=== PATIENT | male | born 1990 | race American Indian/Alaskan Native ===

== ENCOUNTER 2016-12-29 09:15 | Emergency (ER) | payer MEDICAID ==
[2016-12-29 09:26] VITALS: BP 121/78; RESP 18; TEMP 98.1
--- NOTE | 2016-12-29 09:32 | C.PDOC ---
History Of Present Illness 26M c/o left hand pain after punching a wall last night around 1am. he noted the pain when he woke up today. has not taken anything at home for pain. right- handed. Time Seen by Provider: 12/29/16 09:18 Chief Complaint (Nursing): Upper Extremity Problem/Injury Past Medical History Vital Signs: Last Vital Signs Temp 98.1 F 12/29/16 09:21 Pulse 75 12/29/16 09:59 Resp 18 12/29/16 09:59 BP 121/78 12/29/16 09:21 Pulse Ox 98 12/29/16 09:59 Family History: States: Other Other Family History: nc - Social History Hx Alcohol Use: Yes Hx Substance Use: No Review Of Systems Constitutional: Negative for: Fever Cardiovascular: Negative for: Chest Pain Respiratory: Negative for: Shortness of Breath Gastrointestinal: Negative for: Vomiting Neurological: Negative for: Weakness, Numbness Physical Exam - Physical Exam Appears: Well, Non-toxic, No Acute Distress Skin: Warm, Dry Cardiovascular: Rhythm Regular Respiratory: No Accessory Muscle Use Extremity: Other (ttp over 3-5th mc left hand. no ttp wrist but dim rom due to hand pain. sensation intact. pt not cooperative w full strength testing. ) Pulses: Right Radial: Normal Neurological/Psych: Oriented x3, Other (no focal deficits) ED Course And Treatment O2 Sat by Pulse Oximetry: 100 Medical Decision Making Medical Decision Making: xr left hand and wrist- no acute fracture ulnar gutter splint applied ortho follow up Disposition - Disposition Referrals: [facility] [Outside] Yandel Busch MD [Staff Provider] - Disposition: HOME/ ROUTINE Disposition Time: 09:48 Condition: STABLE Additional Instructions: Please follow up with the hospital cleaning specialist. Return to the ER for any worsening symptoms or for any other concerns. Prescriptions: Naproxen [Naprosyn] 500 mg PO Q12H PRN #10 tablet PRN Reason: Pain, Moderate (4-7) Instructions: Splint Care (ED) Forms: [facility] (Montenegrin), Work Excuse - Clinical Impression Clinical Impression: Hand injury
[2016-12-29 10:00] VITALS: PULSE 75
--- NOTE | 2016-12-29 10:19 | RAD ---
PROCEDURE: Left hand radiographs Left wrist radiographs HISTORY: punched wall COMPARISON: None available. FINDINGS: BONES: No acute displaced fracture. JOINTS: No dislocation. SOFT TISSUES: Soft tissue swelling. No evidence of radiopaque foreign body. OTHER FINDINGS: None. IMPRESSION: Soft tissue swelling. No acute displaced fracture, dislocation, or significant joint effusion identified. If symptoms persist, or if there is continued clinical concern, x-ray follow-up in 7-10 days should be considered.
[2017-01-02 18:41] VITALS: O2SAT 100
== END 2016-12-29 10:05 | disposition home or self-care (01) ==
LOC: C.ER 09:15
DX: S69.92XA Unspecified injury of left wrist, hand and finger(s), initial encounter (principal); W22.01XA Walked into wall, initial encounter